=== PATIENT | female | born 1990 | race African-American/Black ===

== ENCOUNTER 2016-09-06 09:49 | Emergency (ER) | payer MEDICAID ==
[~2016-09-06] VITALS: Ht 165.1 cm; Wt 80.0 kg
[2016-09-06 09:54] VITALS: BP 131/79
== END 2016-09-06 11:12 | disposition home or self-care (01) ==
LOC: ER 11:06
DX: L21.9 Seborrheic dermatitis, unspecified (principal); F31.9 Bipolar disorder, unspecified; I10 Essential (primary) hypertension
CPT/HCPCS: 99282